=== PATIENT | female | born 1945 | race Caucasian/White ===

== ENCOUNTER → 2022-06-08 14:25 | Outpatient (BNVA) | payer OTHER, MEDICARE, SELFPAY | PROVIDERS: PCP Student in an Organized Health Care Education/Training Program; Referring Provider Internal Medicine; Visit Provider Internal Medicine Cardiovascular Disease | DX: I10 Essential (primary) hypertension (principal); R07.9 Chest pain, unspecified | CPT/HCPCS: 93005; 99202 ==

== ENCOUNTER 2023-04-03 11:19 | Outpatient (REF) | payer MEDICARE, SELFPAY ==
--- NOTE | ~2023-04-03 | XR_ITS ---
EXAMINATION: XR KNEE, LEFT XR PELVIS AND HIP, LEFT CLINICAL INFORMATION: Pain. COMPARISON: None available. TECHNIQUE: AP pelvis and 2 views of the left hip. Three views of the left knee. FINDINGS: Three views of the left knee do not demonstrate any evidence of acute fracture or dislocation. No significant effusion is appreciated. There is mild spurring at the patellofemoral joint with some osteopenia in the juxta-articular medial patellar facet. Joint spaces are maintained. There is mild spurring of the patellar site of insertion of the quadriceps tendon. AP film of the pelvis does not demonstrate any evidence of acute fracture or diastasis. Hip joint spaces are maintained. There is spurring about the right greater trochanter. No significant sacroiliac joint abnormality is appreciated. There is degenerative disc disease lower lumbar spine L4-L5 and L5-S1. Two views of the left hip do not demonstrate any evidence of acute fracture or dislocation. Hip joint space is maintained without significant spurring appreciated. No abnormal lytic or sclerotic lesions seen within the left femoral head. XR/XR knee LT 3V IMPRESSION: No significant bony abnormality of the left hip identified. Right greater trochanter spurring. Degenerative change lower lumbar spine. Mild patellofemoral joint degenerative change of the left knee.
--- NOTE | ~2023-04-03 | XR_ITS ---
EXAMINATION: XR KNEE, LEFT XR PELVIS AND HIP, LEFT CLINICAL INFORMATION: Pain. COMPARISON: None available. TECHNIQUE: AP pelvis and 2 views of the left hip. Three views of the left knee. FINDINGS: Three views of the left knee do not demonstrate any evidence of acute fracture or dislocation. No significant effusion is appreciated. There is mild spurring at the patellofemoral joint with some osteopenia in the juxta-articular medial patellar facet. Joint spaces are maintained. There is mild spurring of the patellar site of insertion of the quadriceps tendon. AP film of the pelvis does not demonstrate any evidence of acute fracture or diastasis. Hip joint spaces are maintained. There is spurring about the right greater trochanter. No significant sacroiliac joint abnormality is appreciated. There is degenerative disc disease lower lumbar spine L4-L5 and L5-S1. Two views of the left hip do not demonstrate any evidence of acute fracture or dislocation. Hip joint space is maintained without significant spurring appreciated. No abnormal lytic or sclerotic lesions seen within the left femoral head. XR/XR hip LT w PEL1V IMPRESSION: No significant bony abnormality of the left hip identified. Right greater trochanter spurring. Degenerative change lower lumbar spine. Mild patellofemoral joint degenerative change of the left knee.
== END 2023-04-03 11:20 | disposition home or self-care (01) ==
LOC: HO.XRAY 11:19
PROVIDERS: PCP Student in an Organized Health Care Education/Training Program; Visit Provider Internal Medicine
DX: M25.552 Pain in left hip (principal); M25.562 Pain in left knee
CPT/HCPCS: 73502; 73562

== ENCOUNTER 2025-05-14 09:58 | Outpatient (REF) | payer MEDICARE, SELFPAY ==
--- OUTSIDE RECORDS SUMMARY | 2025-05-14 10:25 | XMS_ITS | Clinical Summary ---
Author Organization [facility], Address [address] [place] [address] [place] [address] Phone Care Team Providers Care Rn Telehealth Name Role Phone Carmen Stone MD Primary Care Provider [phone] Allergies No known active allergies Medications diphenhydrAMINE (Banophen) 25 MG tablet Comments: Filled Date: Apr 20 2017 12:00AM Patient Notes: TAKE 1 CAPSULE BY MOUTH 20 TO 30 MINUTES BEFORE BEDTIME IF NEEDED. Duration: 7 Active amLODIPine (NORVASC) 10 MG tablet Take 10 mg by mouth every morning 0 Active SM ASPIRIN LOW DOSE 81 MG chewable tablet CHEW ONE TABLET EVERY MORNING 0 Active cholecalciferol (VITAMIN D-3) 25 MCG (1000 UT) tablet Take 1,000 Units by mouth every morning 0 Active cloNIDine (CATAPRES) 0.1 MG tablet TAKE ONE TABLET THREE TIMES DAILY IN THE MORNING, EVENING AND BEDTIME 0 Active hydroCHLOROthia zide (HYDRODIURIL) 25 MG tablet Comments: Filled Date: May 30 2017 12:00AM Patient Notes: TAKE 1 TABLET EVERY DAY IN THE MORNING Duration: 6 Active lamoTRIgine (LaMICtal) 100 MG tablet TAKE ONE TABLET IN THE MORNING AND EVENING 0 Active lisinopril (PRINIVIL,ZESTR IL) 40 MG tablet Comments: Filled Date: May 30 2017 12:00AM Patient Notes: TAKE 1 TABLET EVERY DAY IN THE MORNING Duration: 6 Active metFORMIN (GLUCOPHAGE) 1000 MG tablet Comments: Filled Date: May 30 2017 12:00AM Patient Notes: TAKE 1 TABLET TWICE DAILY WITH BREAKFAST AND DINNER. Duration: 30 7 Active metoprolol tartrate (LOPRESSOR) 25 MG tablet TAKE ONE TABLET TWICE DAILY IN THE MORNING AND AT BEDTIME 0 Active simvastatin (ZOCOR) 20 MG tablet Take 20 mg by mouth every night 0 Active traZODone (DESYREL) 50 MG tablet Take 50 mg by mouth every night 0 Active Active Problems Problem Noted Date Diagnosed Date Seizure 06/30/2020 Hypertensive chronic kidney disease with stage 1 through stage 4 chronic kidney disease, or unspecified chronic kidney disease 02/27/2020 Renal disorder due to type 2 diabetes mellitus 0 02/25/2020 Chronic kidney disease stage 3 02/25/2020 Acute nontraumatic kidney injury 02/25/2020 Family History Relation Status Comments Father Mother Social History Tobacco Use Types Packs/Day Years Used Date Smoking Tobacco: Never Alcohol Use Standard Drinks/Week Comments No 0 (1 standard drink = 0.6 oz pur e alcohol) Comments Unknown Sex and Gender Information Value Date Recorded Sex Assigned at Not on file Legal Sex Female 4:36 PM EST Gender Identity Not on file Sexual Orientation Not on file Plan of Treatment Health Maintenance Due Date Last Done Comments Pneumococcal Vaccine: 50+ Ye ars (1 of 2 - PCV) 1962 Diabetes: Hemoglobin A1C 2020 Diabetes: Ophthalmology Exam 2020 Diabetes: Pedal Pulse Checked 2020 Diabetes: Sensory Foot Exam 2020 Diabetes: Visual Foot Exam 2020 Influenza Vaccine (Season Ended) 2025 Hepatitis B Vaccine Aged Out No longe r eligible based on patient's age to complete this topic Insurance [address] [place] [address] Community Plan Dual Elig Care Teams Rn Telehealth Relationship Specialty Start Date End Date Carmen Stone MD [address] [place] [id number] PCP - General 09/17/19
--- OUTSIDE RECORDS SUMMARY | 2025-05-14 10:25 | XMS_ITS | Clinical Summary ---
Author Organization [facility] Address [address] [place] [address] Phone Care Team Providers Care Phototypesetting Equipment Monitor Name Role Phone Physician, Pcp Unknown Primary Care Provider Amara vailable Allergies No known active allergies Medications cyclobenzaprine (FLEXERIL) 10 mg tablet Take 1 tablet (10 mg total) by mouth 2 (two) times a day if needed for muscle spasms for up to 10 days. 20 tablet 03/01/2025 Active Encounters Date Type Department Care Team Description 03/01/2025 2:55 PM EDT - 03/01/2025 6:29 PM EDT Emergency [facility] Emergency [address] [place] [address] Cervical strain, acute, initial encounter (Primary Dx); Strain of lumbar region, initial encounter Discharge Disposition: Home or Self Care from Last 3 Months Medical History Medical History Date Comments Seizures (CMS/HCC V24, CMS/HCC V28) Hypertension Hyperlipidemia Social History Tobacco Use Types Packs/Day Years Used Date Smoking Tobacco: Never Assessed Comments Unknown Sex and Gender Information Value Date Recorded Sex Assigned at Not on file Legal Sex Female 4:31 PM EST Gender Identity Not on file Sexual Orientation Not on file Obstetrics History Last Filed Vital Signs Vital Sign Reading Time Taken Comments Blood Pressure 155/63 03/01/2025 5:56 PM EDT Pulse 73 03/01/2025 5:56 PM EDT Temperature 36.5 C (97.7 F) 03/01/2025 4:41 PM EDT Respiratory Rate 16 03/01/2025 5:56 PM EDT Oxygen Saturation 95% 03/01/2025 5:56 PM EDT Inhaled Oxygen Concentration - - Weight 56.2 kg (124 lb) 03/01/2025 2:35 PM EDT Height 152.4 cm (5') 03/01/2025 2:35 PM EDT Body Mass Index 24.22 03/01/2025 2:35 PM EDT Plan of Treatment Health Maintenance Due Date Last Done Comments Diabetes: Annual GFR (Glomerular Filtration Rate) 1943 Diabetes: Annual Foot Exam 1953 Diabetes: Annual Retina Eye Exam 1953 RSV Immunization Adult Patients (1 - 1-dose 75+ series) 2018 Zoster Vaccines (3 of 3) 05/13/2022 03/18/2022, 02/11 COVID-19 Vaccine ( season) 2024 01/05/2024, 04/13/2021, 03/15/2021 Cholesterol Screening (Lipid Panel) 03/01/2025 Depression Screening 03/01/2025 04/14/2023 Diabetes: Annual Urine Albumin-Creatinine Ratio (uACR) 03/01/2025 Diabetes: Blood Sugar Control Test (HGBA1C) 03/01/2025 04/14/2023 Falls Risk Assessment 03/01/2025 Hypertension/CHF/CAD Annual BMP Blood Test 03/01/2025 Osteoporosis Screening (Bone Density Screening) 03/01/2025 Social Influencers of Health Screening 03/01/2025 Influenza Vaccine (#1) 2025 , 12/08/2020, 09/03/2018, Additional history exists DTaP,Tdap,and Td Vaccines (3 - Td or Tdap) 11/20/2025 11/20/2015, 11/12/2014 Pneumococcal Vaccine: 50+ Years Completed 10/23/2017, 09/26/2016 HIB Vaccines Aged Out No longer eligi ble based on patient's age to complete this topic HPV Vaccines Aged Out No longer eligi ble based on patient's age to complete this topic Hepatitis A Vaccines Aged Out No long er eligible based on patient's age to complete this topic Hepatitis B Vaccines Aged Out No long er eligible based on patient's age to complete this topic IPV Vaccines Aged Out No longer eligi ble based on patient's age to complete this topic MMR Vaccines Aged Out No longer eligi ble based on patient's age to complete this topic Meningococcal ACWY Vaccine Aged Out N o longer eligible based on patient's age to complete this topic Meningococcal B Vaccine Aged Out No l onger eligible based on patient's age to complete this topic RSV Immunization Patients Under 20 months Aged Out No longer eligible based on patient's age to complete this topic Varicella Vaccines Aged Out No longer eligible based on patient's age to complete this topic Procedures Procedure Name Priority Date/Time Associated Diagnosis Comments XR LUMBAR SPINE 2-3 VIEWS STAT 03/01/2025 4:27 PM EDT XR CERVICAL SPINE 2-3 VIEWS STAT 03/01/2025 4:27 PM EDT XR RIBS W CHEST 3+ VIEWS LEFT STAT 03/01/2025 4:27 PM EDT from Last 3 Months Results * XR Lumbar Spine 2-3 Views (03/01/2025 4:27 PM EDT) Anatomical Region Laterality Modality Spine, L-spine Radiographic Claribel ging 03/02/2025 1:13 PM EDT Impressions 03/02/2025 1:14 PM EDT Impression: 1. No evidence of cervical spine fracture or subluxation. 2. Lumbar spondylosis and degenerative disc disease. Telerad PA ([id number]) -------- FINAL REPORT -------- Dictated By: Melly Adair Dictated Date: 03/02/2025 13:13 ET Assigned Physician: Melly Adair Reviewed and Electronically Signed By: Melly Adair Signed Date: 03/02/2025 13:14 ET Workstation ID: [id number] Transcribed By: Self Edit Transcribed Date: 03/02/2025 13:13 ET Narrative 03/02/2025 1:14 PM EDT History: Low back pain after trauma. Findings: AP, lateral and coned lateral views. There are 5 nonrib-bearing lumbar-type vertebra in normal alignment. The vertebral bodies maintain normal height. Loss of disc height is noted at L4-L5 and L5-S1, consistent with degenerative disc disease. There are arthritic changes in the lower lumbar apophyseal joints. Minimal anterior vertebral endplate spurring is seen. The sacroiliac joints are well-maintained. Atherosclerotic vascular calcification is present. Procedure Note Melly Adair MD - 03/02/2025 History: Low back pain after trauma. Findings: AP, lateral and coned lateral views. There are 5 nonrib-bearing lumbar-type vertebra in normal alignment. Thevertebral bodies maintain normal height. Loss of disc height is noted atL4-L5 and L5-S1, consistent with degenerative disc disease. There arearthritic changes in the lower lumbar apophyseal joints. Minimal anteriorvertebral endplate spurring is seen. The sacroiliac joints are well-maintained. Atherosclerotic vascular calcification is present. IMPRESSION: Impression: 1. No evidence of cervical spine fracture or subluxation. 2. Lumbar spondylosis and degenerative disc disease. Telerad PA ([id number]) -------- FINAL REPORT -------- Dictated By: Melly Adair Dictated Date: 03/02/2025 13:13 ET Assigned Physician: Melly Adair Reviewed and Electronically Signed By: Melly Adair Signed Date: 03/02/2025 13:14 ET Workstation ID: [id number] Transcribed By: Self Edit Transcribed Date: 03/02/2025 13:13 ET Louann MANNING IMG XR PROCEDURES Deysi l Result * XR Cervical Spine 2-3 Views (03/01/2025 4:27 PM EDT) Anatomical Region Laterality Modality Spine, C-spine Radiographic Claribel ging 03/02/2025 1:11 PM EDT Impressions 03/02/2025 1:12 PM EDT Impression: No evidence of cervical spine fracture or subluxation. Telerad PA ([id number]) -------- FINAL REPORT -------- Dictated By: Melly Adair Dictated Date: 03/02/2025 13:11 ET Assigned Physician: Melly Adair Reviewed and Electronically Signed By: Melly Adair Signed Date: 03/02/2025 13:12 ET Workstation ID: [id number] Transcribed By: Self Edit Transcribed Date: 03/02/2025 13:11 ET Narrative 03/02/2025 1:12 PM EDT History: Neck pain after trauma. Findings: AP, lateral and open mouth odontoid views. Vertebral alignment is normal. The vertebral bodies maintain normal height and the disc spaces are preserved. Arthritic changes are present within the apophyseal joints bilaterally. The prevertebral soft tissues, predental distance and odontoid process appear normal. Procedure Note Melly Adair MD - 03/02/2025 History: Neck pain after trauma. Findings: AP, lateral and open mouth odontoid views. Vertebral alignment is normal. The vertebral bodies maintain normal heightand the disc spaces are preserved. Arthritic changes are present withinthe apophyseal joints bilaterally. The prevertebral soft tissues, predental distance and odontoid processappear normal. IMPRESSION: Impression: No evidence of cervical spine fracture or subluxation. Learn It Livekatrina MANNING ([id number]) -------- FINAL REPORT -------- Dictated By: Melly Adair Dictated Date: 03/02/2025 13:11 ET Assigned Physician: Melly Adair Reviewed and Electronically Signed By: Melly Adair Signed Date: 03/02/2025 13:12 ET Workstation ID: [id number] Transcribed By: Self Edit Transcribed Date: 03/02/2025 13:11 ET Louann MANNING IMG XR PROCEDURES Deysi l Result * XR Ribs w Chest 3+ Views Left (03/01/2025 4:27 PM EDT) Anatomical Region Laterality Modality Body Left Radiographic Claribel ging 03/02/2025 1:14 PM EDT Impressions 03/02/2025 1:15 PM EDT Impression: 1. No active pulmonary process identified. 2. No left rib fracture seen. Telerad NIGEL ([id number]) -------- FINAL REPORT -------- Dictated By: Melly Adair Dictated Date: 03/02/2025 13:14 ET Assigned Physician: Melly Adair Reviewed and Electronically Signed By: Melly Adair Signed Date: 03/02/2025 13:15 ET Workstation ID: [id number] Transcribed By: Self Edit Transcribed Date: 03/02/2025 13:14 ET Narrative 03/02/2025 1:15 PM EDT History: Left-sided chest pain. Trauma. Comparison: 06/25/21 Findings: An upright PA view of the chest and specific views of the left ribs are summitted. The cardiac silhouette remains normal in size. Atherosclerotic calcification is seen in the aorta. Hilar contours and pulmonary vascularity are within normal limits. Minimal thin bandlike opacity is seen at the left lung base, unchanged, consistent with discoid atelectasis or scar. The lungs are otherwise clear. The costophrenic angles are sharp. No pneumothorax is seen. No left rib fracture is seen. Procedure Note Melly Adair MD - 03/02/2025 History: Left-sided chest pain. Trauma. Comparison: 06/25/21 Findings: An upright PA view of the chest and specific views of the left ribs aresummitted. The cardiac silhouette remains normal in size. Atheroscleroticcalcification is seen in the aorta. Hilar contours and pulmonaryvascularity are within normal limits. Minimal thin bandlike opacity isseen at the left lung base, unchanged, consistent with discoid atelectasisor scar. The lungs are otherwise clear. The costophrenic angles are sharp.No pneumothorax is seen. No left rib fracture is seen. IMPRESSION: Impression: 1. No active pulmonary process identified. 2. No left rib fracture seen. Telerad PA ([id number]) -------- FINAL REPORT -------- Dictated By: Melly Adair Dictated Date: 03/02/2025 13:14 ET Assigned Physician: Melly Adair Reviewed and Electronically Signed By: Melly Adair Signed Date: 03/02/2025 13:15 ET Workstation ID: [id number] Transcribed By: Self Edit Transcribed Date: 03/02/2025 13:14 ET Nick Turner DO IMG XR PROCEDURES Final Result from Last 3 Months Insurance [employer] Care Teams Phototypesetting Equipment Monitor Relationship Specialty Start Date End Date Physician, Pcp Unknown PCP - General 03/01/25
[2025-05-14 15:04] LABS: Hemoglobin A1C 148.1036 umol/L; Total Hemoglobin (HGBA1C) 3180.6123 umol/L
[2025-05-14 15:09] LABS: Alanine Aminotransferase 9 U/L (0-31); Albumin Level 4.4 g/dL (3.5-5.0); Alkaline Phosphatase 96 U/L (39-117); Anion Gap 14 (12-20); Aspartate Amino Transferase 27 U/L (5-31); Blood Urea Nitrogen 27 mg/dL (9-16); Calcium 9.6 mg/dL (8.4-10.2); Carbon Dioxide 21 mmol/L (22-29); Chloride 109 mmol/L (96-108); Cholesterol 150 mg/dL (<200); Estimated Glomerular Filt Rate 34; HDL Cholesterol 46 mg/dL (>40); Potassium 4.2 mmol/L (3.3-5.1); Sodium 140 mmol/L (135-145); Total Protein 8.1 g/dL (6.5-8.0); Triglycerides 139 mg/dL (<150)
== END 2025-05-14 09:59 | disposition home or self-care (01) ==
LOC: HO.CHCLDS 09:58
PROVIDERS: Visit Provider Student in an Organized Health Care Education/Training Program
DX: E11.21 Type 2 diabetes mellitus with diabetic nephropathy (principal); E78.00 Pure hypercholesterolemia, unspecified; I10 Essential (primary) hypertension
CPT/HCPCS: 36415; 80048; 80061; 80076; 83036